=== PATIENT | male | born 1995 | race Caucasian/White ===

== ENCOUNTER 2020-11-13 04:43 | Emergency (ER) | payer MEDICAID ==
[~2020-11-13] VITALS: Ht 177.8 cm; Wt 105.7 kg
[2020-11-13 05:02] VITALS: BP 134/75
--- NOTE | 2020-11-13 05:02 | NUR ---
ARRIVAL AMBULATED TO ROOM. C/O OF COUGH, BRITO, SORE THROAT, DIARRHEA, DIZZINESS X 2-3 DAYS. PT STATED HIS NEICE HAS RSV AND HE IS HERE VISITING FROM [place]. C/O PAIN 7/10 ON NUMERICAL SCALE TO HEAD.
[2020-11-13] MEDS ORDERED: DECADRON PO STA (05:17)
[2020-11-13] MEDS ORDERED: DECADRON ONE (05:31)
--- NOTE | 2020-11-13 06:22 | ER.PDOC ---
General Chief Complaint: Cough/Congestion Stated Complaint: COUGH,SOB,RUNNY NOSE,SORE THROAT,CHILLS,DIZZY,DIAR Time seen by MD: 05:05 Source: patient Exam Limitations: no limitations History of Present Illness Initial Comments 25 Y M few days of cold symptoms, no fever, productive cough, no n/v/d, does have watery eyes, exposed to RSV Allergies: Coded Allergies: Benzodiazepines (Verified Allergy, Intermediate, 11/13/20) Past Medical History Medical History: no pertinent history Surgical History: appendectomy, other Social History Alcohol Use: occassionally Drug Use: none Review of Systems All Other Systems: Reviewed and Negative Physical Exam General Appearance: No Apparent Distress HEENT: Normal ENT Inspection Neck: Normal Inspection Respiratory: no respiratory distress Cardiovascular: Normal Peripheral Pulses Gastrointestinal: Soft Extremities: Normal Inspection Neurologic/Psychiatric: No Motor/Sensory Deficits Skin: Normal Color Lymphatic: No Adenopathy Results/Orders Results/Orders Orders - BEBA ALVARADO MD Dexamethasone (Decadron) (11/13/20 05:17) Dexamethasone (Decadron) (11/13/20 05:31) Covid19 Antigen Mary [place] (11/13/20 05:55) Vital Signs Date Time Temp Pulse Resp B/P (MAP) Pulse Ox O2 Delivery O2 Flow Rate FiO2 11/13/20 05:02 98.8 91 20 11/13/20 05:02 98.8 91 20 96 11/13/20 05:02 98.8 91 20 134/75 (94) 96 Room Air Administered Medications Medications (Trade) Dose Ordered Sig/Clara Route PRN Reason Start Time Stop Time Status Last Admin Dose Admin Dexamethasone (Decadron) 8 mg STAT STAT PO 11/13/20 05:17 11/13/20 05:29 DC 11/13/20 05:20 8 MG Laboratory Tests Test 11/13/20 05:40 SARS-CoV-2 Antigen (Rapid) NEGATIVE (NEGATIVE) ER DEPART Departure Time of Disposition: 06:21 Disposition: 01 HOME / SELF CARE / HOMELESS Impression: Primary Impression: Viral upper respiratory infection Condition: Improved Patient Instructions: Acute Bronchitis, [id number] Referrals: PCP,UNKNOWN (PCP) PRIMARY CARE PROVIDER Duration or Time Spent with Pa: 10m BEBA ALVARADO MD Nov 13, 2020 06:22
== END 2020-11-13 06:29 | disposition home or self-care (01) ==
LOC: ER 04:43
DX: J06.9 Acute upper respiratory infection, unspecified (principal); Z88.8 Allergy status to other drugs, medicaments and biological substances; Z90.49 Acquired absence of other specified parts of digestive tract; Z79.52 Long term (current) use of systemic steroids; Z20.822 Contact with and (suspected) exposure to COVID-19
CPT/HCPCS: 87426; 99283; J8540